=== PATIENT | female | born 1975 | race Caucasian/White ===

== ENCOUNTER 2017-11-07 02:00 | Inpatient (IN) | payer SELFPAY ==
[2017-11-07] MEDS ORDERED: NS 1,000 ML IV ONE (02:12)
--- NOTE | 2017-11-07 02:19 | EDPHY ---
H & P Stated Complaint: chills, left flank pain, Time Seen by Provider: 11/07/17 02:08 HPI/ROS: Chief Complaint: Left flank pain, chills HPI: 42-year-old woman began having urinary symptoms yesterday. She was seen by her primary care physician diagnosed with a UTI with possible early kidney infection. She was started on Bactrim DS. Patient states she woke this morning with worsening pain and rigors. She has not have a history of frequent urinary tract infections in the past. She is having some abdominal pain as well. She has been taking antibiotics. No nausea or vomiting. No chest pain or shortness of breath. Last menstrual. Was about 2 weeks ago. ROS: 10 point Review of Systems is negative except as noted in the HPI. PMH: Denies Social History: No smoking, occasional alcohol Family History: Noncontributory Physical Exam: Gen: Awake, Alert, No Distress HEENT: Nose: no rhinorrhea Eyes: PERRLA, EOMI Mouth: Moist mucosa Neck: Supple, no JVD Chest: nontender, lungs clear to auscultation Heart: S1, S2 normal, no murmur Abd: Soft, diffuse tenderness left greater than right, moderate voluntary guarding Back: Severe left CVA tenderness, no midline tenderness Ext: no edema, non-tender Skin: no rash Neuro: CN II-XII intact, Sensation grossly intact, Strength 5/5 in bilateral upper and lower extremities - Personal History LMP (Females 10-55): 8-14 Days Ago - Medical/Surgical History Hx Asthma: No Hx Chronic Respiratory Disease: No Hx Diabetes: No Hx Cardiac Disease: No Hx Renal Disease: No Hx Cirrhosis: No Hx Alcoholism: No Hx HIV/AIDS: No Hx Splenectomy or Spleen Trauma: No - Social History Smoking Status: Never smoked Constitutional: Initial Vital Signs Temperature (C) 36.5 C 11/07/17 02:02 Heart Rate 102 H 11/07/17 02:02 Respiratory Rate 24 H 11/07/17 02:02 Blood Pressure 117/83 H 11/07/17 02:02 O2 Sat (%) 99 11/07/17 02:02 O2 Delivery Mode Room Air Allergies/Adverse Reactions: No Known Allergies Allergy (Unverified 11/07/17 02:04) Medical Decision Making ED Course/Re-evaluation: Patient is quite uncomfortable appearing. Has significant CVA tenderness. Urinalysis consistent with UTI. She has got a significant left shift. I have given her 1 g of ceftriaxone here. I have also given her 15 mg of Toradol IV. She has been taking acetaminophen every 4 hr. She is fortunately he is febrile here. I have discussed with Dr. Dietz, hospitalist. She will admit to her service for continued care. - Data Points Laboratory Results: Laboratory Results 11/07/17 02:22 11/07/17 02:22 11/07/17 11/07/17 11/07/17 02:22 02:22 02:22 WBC 12.31 10^3/uL H 10^3/uL (3.80-9.50) RBC 4.62 10^6/uL 10^6/uL (4.18-5.33) Hgb 15.0 g/dL g/dL (12.6-16.3) Hct 43.4 % % (38.0-47.0) MCV 93.9 fL fL (81.5-99.8) MCH 32.5 pg pg (27.9-34.1) MCHC 34.6 g/dL g/dL (32.4-36.7) RDW 12.6 % % (11.5-15.2) Plt Count 214 10^3/uL 10^3/uL (150-400) MPV 10.5 fL fL (8.7-11.7) Neut % (Auto) 78.2 % H % (39.3-74.2) Lymph % (Auto) 17.6 % % (15.0-45.0) [place] % (Auto) 3.3 % L % (4.5-13.0) Eos % (Auto) 0.3 % L % (0.6-7.6) Baso % (Auto) 0.2 % L % (0.3-1.7) Nucleat RBC Rel Count 0.0 % % (0.0-0.2) Absolute Neuts (auto) 9.61 10^3/uL H 10^3/uL (1.70-6.50) Absolute Lymphs (auto) 2.17 10^3/uL 10^3/uL (1.00-3.00) Absolute Monos (auto) 0.41 10^3/uL 10^3/uL (0.30-0.80) Absolute Eos (auto) 0.04 10^3/uL 10^3/uL (0.03-0.40) Absolute Basos (auto) 0.03 10^3/uL 10^3/uL (0.02-0.10) Absolute Nucleated RBC 0.00 10^3/uL 10^3/uL (0-0.01) Immature Gran % 0.4 % % (0.0-1.1) Immature Gran # 0.05 10^3/uL 10^3/uL (0.00-0.10) Sodium 143 mEq/L mEq/L (135-145) Potassium 4.3 mEq/L mEq/L (3.5-5.2) Chloride 106 mEq/L mEq/L (97-110) Carbon Dioxide 20 mEq/l L mEq/l (22-31) Anion Gap 17 mEq/L H mEq/L (8-16) BUN 8 mg/dL mg/dL (7-23) Creatinine 0.9 mg/dL mg/dL (0.6-1.0) Estimated GFR > 60 Glucose 109 mg/dL H mg/dL (70-100) Calcium 9.4 mg/dL mg/dL (8.5-10.4) Beta HCG, Qual NEGATIVE Urine Color Urine Appearance Urine pH Ur Specific [place] Urine Protein Urine Ketones Urine Blood Urine Nitrate Urine Bilirubin Urine Urobilinogen Ur Leukocyte Esterase Urine RBC Urine WBC Ur Epithelial Cells Urine Bacteria Urine Mucus Urine Glucose 11/07/17 02:05 WBC RBC Hgb Hct MCV MCH MCHC RDW Plt Count MPV Neut % (Auto) Lymph % (Auto) [place] % (Auto) Eos % (Auto) Baso % (Auto) Nucleat RBC Rel Count Absolute Neuts (auto) Absolute Lymphs (auto) Absolute Monos (auto) Absolute Eos (auto) Absolute Basos (auto) Absolute Nucleated RBC Immature Gran % Immature Gran # Sodium Potassium Chloride Carbon Dioxide Anion Gap BUN Creatinine Estimated GFR Glucose Calcium Beta HCG, Qual Urine Color YELLOW Urine Appearance MODERATELY TURBID Urine pH 7.0 (5.0-7.5) Ur Specific [place] 1.010 (1.002-1.030) Urine Protein 1+ H (NEGATIVE) Urine Ketones NEGATIVE (NEGATIVE) Urine Blood 2+ H (NEGATIVE) Urine Nitrate NEGATIVE (NEGATIVE) Urine Bilirubin NEGATIVE (NEGATIVE) Urine Urobilinogen NEGATIVE EU EU (0.2-1.0) Ur Leukocyte Esterase 3+ H (NEGATIVE) Urine RBC 25-50 /hpf H /hpf (0-3) Urine WBC 50-182 /hpf H /hpf (0-3) Ur Epithelial Cells TRACE /lpf /lpf (NONE-1+) Urine Bacteria 3+ /hpf H /hpf (NONE SEEN) Urine Mucus TRACE /lpf /lpf (NONE-1+) Urine Glucose NEGATIVE (NEGATIVE) Medications Given: Discontinued Medications Sodium Chloride (Ns) 1,000 mls @ 0 mls/hr IV ONCE ONE; Wide Open PRN Reason: Protocol Stop: 11/07/17 02:13 Last Admin: 11/07/17 02:25 Dose: 1,000 mls Ketorolac Tromethamine (Toradol) 15 mg IVP EDNOW ONE Stop: 11/07/17 02:46 Last Admin: 11/07/17 02:49 Dose: 15 mg Departure - Departure Disposition: [facility] Clinical Impression: Acute pyelonephritis Condition: Fair
[2017-11-07 02:29] LABS: PLATELET COUNT 214 10^3/uL (150-400)
[2017-11-07] MEDS ORDERED: cefTRIAXone 1 GM in STERILE WATER INJ 10 ML IV ONE (02:44)
[2017-11-07] MEDS ORDERED: KETOROLAC 15 MG/1 ML SDV IVP ONE (02:45)
[2017-11-07] MEDS ORDERED: ACETAMINOPHEN 650 MG SUPP PR PRN (03:36)
[2017-11-07] MEDS ORDERED: ACETAMINOPHEN 325 MG TAB PO PRN (03:36)
[2017-11-07] MEDS ORDERED: ONDANSETRON 4 MG/2 ML VIAL IVP PRN (03:36)
[2017-11-07] MEDS ORDERED: LORazepam 0.5 MG TAB PO PRN (03:36)
[2017-11-07] MEDS: LR 1,000 ML IV SCH ×2 (04:40→14:21)
--- NOTE | 2017-11-07 07:02 | GHP ---
[f rep st] HISTORY AND PHYSICAL DATE OF ADMISSION: 11/07/2017 SOURCE: Patient provides history, appears reliable. EMR reviewed and case discussed with ED provide r. CHIEF COMPLAINT: Flank and abdominal pain. HISTORY OF PRESENT ILLNESS: This is a very pleasant 42-year-old female with a past medical history s ignificant for anemia, hypertension, baseline, who presents to the emergency [facility] with complaints of 2-day history of dysuria. The patient was also having progressively increasing pain in her lower back with radiation to her left lower quadrant and abdomen. The pain was worse wit h any movement. She did see her PCP who prescribed Bactrim DS. The patient also had noted frequency , urgency and cloudy urine around this time. Her symptoms continued to worsen. She developed nausea with diarrhea, but no vomiting and no dysuria. She presented to the emergency department with worse toro symptoms. In the emergency department, the patient reports that [facility] including rigors with no shortness of breath. REVIEW OF SYSTEMS: Positive for a headache, which has resolved. Occasional palpitations ongoing for many years and has some anxiety, otherwise negative. ALLERGIES: No known drug allergies. HOME MEDICATIONS: Iron. PAST MEDICAL HISTORY: Significant for anemia, ovarian cyst, history of baseline hypotension, syncope . PAST SURGICAL HISTORY: Patient denies. FAMILY HISTORY: Father with alcoholism and colon resection for unclear reasons. Brother with murmur due to congenital heart disease. CODE STATUS: Full. Patient is , lives with her . SOCIAL: No tobacco, drugs, or alcohol. PHYSICAL EXAMINATION: VITAL SIGNS: Upon arrival to the emergency department, blood pressure is 117/ 83, heart rate is 102, respiratory rate 24, O2 saturation 99% on room air with a temperature 36.5. V itals at the time of interview blood pressure 113/66, heart rate 87, O2 saturation 96% on room air, r espiratory rate 16, temperature is 37.1. GENERAL: No acute distress. Patient does appear to be acu tely ill, quite fatigued, but nontoxic. She lays quietly and very still in bed. Her is at b edside. HEAD: Normocephalic, atraumatic. EYES: Grossly nonfocal. Extraocular muscles grossly int act. No scleral icterus or conjunctival injection. ENT: Mucous membranes appear dry. No nasal dis charge. NECK: Supple. Trachea midline neck. CV: Regular rate and rhythm. No murmurs, rubs, or ga llops appreciated. RESPIRATORY: Lungs are clear to auscultation bilaterally. No wheezes, rales, or rhonchi. ABDOMEN: Soft with some minimal tenderness to palpation in the left lower quadrant. No r ebound, guarding, or masses appreciated. : No Foote catheter in place. No suprapubic tenderness to palpation, CVA tenderness evaluation was deferred secondary to patient's complaint of severe pain with movement. EXTREMITIES: Patient is able to move her extremities while lying in bed, grossly nor mal. Again, patient is fatigued and tries to lay quite still. NEURO: Grossly nonfocal. No facial drooping, is able to move all extremities. PSYCH: Patient affect is flat. She does appear to feel unwell, but she is otherwise pleasant and cooperative. LABORATORY STUDIES: WBC is 12.31, H and H is 15.0, 42.4, MCV 93.9, platelet count is 214, neutrophil percent 78.2. No bands. Sodium is 142, potassium 4.3, chloride is 106, CO2 is 20, anion gap 17, BU N 8, creatinine 0.9. GFR greater than 60, glucose is 109, calcium 9.4. Beta HCG is negative. UA sp ecific gravity is 1.010 with a pH of 7.0, 1+ protein, 2+ blood, 3+ leukocyte esterase, 25-50 RBCs 50 to 182 WBCs, 3+ bacteria, trace epithelial cells, trace mucus and negative glucose. ASSESSMENT AND PLAN: A very pleasant 42-year-old female who presents with complaints of urinary symp toms ongoing for the past 2 days and now with worsening left flank pain and left lower quadrant abdom inal pain with rigors. 1. Acute pyelonephritis. Patient is status post several doses of Bactrim without improvement in her symptoms. Given high risk rate of resistance, the patient has been escalated to Rocephin. Urine cu lture is pending. 2. Systemic inflammatory response syndrome criteria without qualification for severe sepsis. Patien t did have tachycardia, tachypnea, leukocytosis on arrival. Vital signs quickly resolved. She does not have any evidence of acute renal insufficiency. Will continue to monitor closely. Antibiotics g iven prior to any blood cultures, consider if patient does spike a temp. 3. Acute flank pain. Supportive care, morphine, Ativan p.r.n., oral [place] also available as patient 's pain stabilizes. 4. History of anemia. At this time, H and H is adequate, but it could be hemoconcentrated. We will plan to continue intravenous fluids in a.m., labs in the morning. 5. Fluid, electrolyte, nutrition. Intravenous fluids overnight. Electrolytes will be monitored and replaced if needed. Diet as tolerated. 6. Prophylaxis sequential compression devices. Hold off on anticoagulation at this time. Encourage mobilization as tolerated. The patient is low risk for deep venous thrombosis. CODE STATUS: Full. DISPOSITION: The patient has been admitted to observation on the medical floor at this time, pending resolution of patient's pain and transition to oral antibiotics while awaiting culture. /[id number]/MODL
[2017-11-07] MEDS ORDERED: KETOROLAC 30 MG/1 ML SDV IVP ONE (10:10)
--- NOTE | 2017-11-07 16:26 | HOSPPROG ---
Hospitalist Progress Note Assessment/Plan: Patient is a 42-year-old female with a history of anemia and hypertension. She presented the emergency room with complaints of 2 day history of dysuria and increasing pain in her low back area. She saw her primary care provider who prescribed Bactrim. She subsequently developed nausea and diarrhea but no vomiting. Today is my 1st encounter with the patient. Chart reviewed. * acute pyelonephritis -ceftriaxone -can't completely rule out a kidney stone, patient's pain comes on quickly and sharp at times -could consider a CT scan tomorrow * pain due to this (flank pain) -continue IV Toradol, p.r.n. IV morphine and Tylenol * sirs syndrome -blood cultures not checked - + leukocytosis (repeat labs in a.m.) *Plan: will continue monitoring closely, > 30 minutes f/u with care and discussing plan of care with the patient, will get repeat labs in a.m. Subjective: Yue is still feeling poorly today, has ongoing left sided flank pain. Objective: Vital Signs Temp Pulse Resp BP Pulse Ox 36.9 C 76 12 101/62 95 11/07/17 11:33 11/07/17 11:33 11/07/17 11:33 11/07/17 11:33 11/07/17 11:33 11/06/17 11/07/17 11/08/17 05:59 05:59 05:59 Intake Total 1250 Output Total 800 Balance 1250 -800 - Physical Exam Constitutional: uncomfortable, No not in pain (left flank area) Eyes: PERRL Ears, Nose, Mouth, Throat: hearing normal Cardiovascular: regular rate and rhythym Respiratory: no respiratory distress Gastrointestinal: normoactive bowel sounds Skin: warm Musculoskeletal: full muscle strength Neurologic: AAOx3 Psychiatric: interacting appropriately, not anxious ICD10 Worksheet Patient Problems: Problems Problem Status Onset Acute pyelonephritis Acute
--- NOTE | 2017-11-07 16:52 | PDMN ---
Medical Necessity Medical necessity: change to INPT for pyelonephritis- sig flank pain req further monitoring and tx > 2 midnights
[2017-11-07] MEDS: KETOROLAC 15 MG/1 ML SDV IVP SCH ×2 (16:54→21:32)
[2017-11-07] MEDS ORDERED: cefTRIAXone 1 GM in STERILE WATER INJ 10 ML IV SCH (21:00)
[2017-11-08] MEDS: LR 1,000 ML IV SCH (00:27)
[2017-11-08 04:16] VITALS: TEMP 98.2
[2017-11-08] MEDS: KETOROLAC 15 MG/1 ML SDV IVP SCH ×2 (04:49→10:38)
[2017-11-08 05:12] LABS: PLATELET COUNT 202 10^3/uL (150-400)
[2017-11-08 08:36] VITALS: BP 104/55; PULSE 62; RESP 12; O2SAT 96
--- NOTE | 2017-11-08 10:53 | HOSPPROG ---
Hospitalist Progress Note Assessment/Plan: Patient is a 42-year-old female with a history of anemia and hypertension. She presented the emergency room with complaints of 2 day history of dysuria and increasing pain in her low back area. She saw her primary care provider who prescribed Bactrim. She subsequently developed nausea and diarrhea but no vomiting. * acute pyelonephritis -ceftriaxone -much improved today -urine sensitivities are pending -final urine cx pending -informed patient to have her doctor f/u with this to be sure she is on the right abx -resume Bactrim on dc * pain due to this (flank pain) -resolved * sirs syndrome -blood cultures not checked - leukocytosis almost completely resolved *Plan: dc home, reviewed s/sx of worsening infection Subjective: Yue is feeling much better, flank pain has almost completely resolved. Objective: Vital Signs Temp Pulse Resp BP Pulse Ox 36.8 C 62 12 104/55 L 96 11/08/17 08:00 11/08/17 08:00 11/08/17 08:00 11/08/17 08:00 11/08/17 08:00 Laboratory Results 11/08/17 04:12 11/07/17 11/08/17 11/09/17 05:59 05:59 05:59 Intake Total 2640 Output Total 3150 Balance -510 - Physical Exam Constitutional: no apparent distress, appears nourished, not in pain Eyes: PERRL Ears, Nose, Mouth, Throat: hearing normal Cardiovascular: regular rate and rhythym Respiratory: no respiratory distress Gastrointestinal: normoactive bowel sounds Skin: warm Musculoskeletal: full muscle strength Neurologic: AAOx3 Psychiatric: interacting appropriately ICD10 Worksheet Patient Problems: Problems Problem Status Onset Acute pyelonephritis Acute
[2017-11-08] MEDS ORDERED: cefTRIAXone 1 GM in STERILE WATER INJ 10 ML IV SCH (11:30)
--- NOTE | 2017-11-08 12:58 | GDS ---
[f rep st] DISCHARGE SUMMARY DISCHARGE DIAGNOSES: 1. Acute pyelonephritis. 2. Flank pain due to this. 3. Systemic inflammatory response syndrome. HISTORY OF PRESENT ILLNESS: Patient is a 42-year-old female with a history of anemia. She presented the emergency room with complaints of a 2-day history of dysuria and increasing pain in her low back area. She saw her primary care provider who prescribed Bactrim. She subsequently developed nausea and diarrhea, but no vomiting. She was admitted for further care. HOSPITAL COURSE: 1. Acute pyelonephritis. She was treated with 3 doses of ceftriaxone. She will resume her Bactrim. Her urine culture showed gram-negative rods, lactose international bank manager. Sensitivities are pending. She wi ll follow up with her primary care provider to make sure she is on the right antibiotic. 2. Pain due to this, almost completely resolved. 3. Systemic inflammatory response syndrome, resolved. Her white blood cell count is almost back to normal. DISCHARGE CONDITION: Stable. Blood pressure is 104/55, respiratory rate is 12, pulse is 62, tempera ture 36.8 Celsius, O2 saturation on room air 96%. MEDICATIONS AT DISCHARGE: Please see the EMR. DISCHARGE INSTRUCTIONS: 1. To follow up with her primary care provider in regard to the sensitivities of the urine to make s ure she is on the right antibiotic to continue the Bactrim for a total of 7 more days. 2. To stay well hydrated. 3. If she has worsening back pain, fever, chills, return to the emergency room. Greater than 30 minutes discharging and coordinating patient's care. /[id number]/MODL
--- NOTE | 2017-11-08 14:55 | ASDISCHSUM ---
Discharge Information Plan Status:Home with No Needs Medically Cleared to Leave:11/07/2017 Discharge Date:11/08/2017 12:33 PM CM D/C Disposition: ADT D/C Disposition:Home, Routine, Self-Care Projected Discharge Date:11/08/2017 12:00 AM Transportation at D/C: Discharge Delay Reason: Follow-Up Date:11/08/2017 12:00 AM Discharge Slot: Final Diagnosis: Placement Information Patient Contact Information Contact Name:DEEJAY Relationship:Other Address:[address] [place] [address] Work Phone: City:[place] Alternate Phone: [facility]/Zip Code:[place] [address] Email: Financial Information Financial Class:Self-Pay Primary Plan Desc:SELF PAY Primary Plan Number: Secondary Plan Desc: Secondary Plan Number: Assessment Information Intervention Information
== END 2017-11-08 12:33 | disposition home or self-care (01) | DRG 690 ==
LOC: F3E 03:29 → OBSVTOIN 16:48
PROVIDERS: ADMIT Family Medicine; ATTEND Hospitalist
DX: N10 Acute pyelonephritis (principal); B96.20 Unspecified Escherichia coli [E. coli] as the cause of diseases classified elsewhere; R65.10 Systemic inflammatory response syndrome (SIRS) of non-infectious origin without acute organ dysfunction
CPT/HCPCS: 96374; J0696; J1885